=== PATIENT | male | born 1945 | race Caucasian/White ===

== ENCOUNTER → 2020-01-04 11:12 | Outpatient (CLI) | payer OTHER, SELFPAY ==
[2020-01-05 06:47] LABS: COVID19 Sendout Not Detected (Not Detect)
== END ==
PROVIDERS: PCP Family Medicine; Visit Provider Physician Assistant
DX: Z01.812 Encounter for preprocedural laboratory examination (principal)
CPT/HCPCS: 87635

== ENCOUNTER 2020-01-07 07:30 | Day surgery (SDC) | payer OTHER, SELFPAY ==
--- NOTE | 2020-01-07 | PATH_ITS ---
[facility] Accession Number: [id number] . 01 Material submitted: . PART A: cecum - CECUM PART B: anal skin - ANAL VERGE . 02 Diagnosis: A. Cecum, Biopsy: Tubular adenoma. . B. Anal Verge, Biopsy: Hyperplastic polyps. MRV 01/11/2020 0945 Local . 02 Electronically signed: . Anna Tanner MD, Pathologist NPI- [id number] . 01 Gross description: . Specimen A is received in formalin, labeled with patient identification and cecum biopsy. It consists of a yellow-suárez and irregular soft tissue piece measuring 0.4 x 0.3 x 0.2 cm. The entire specimen is submitted in one cassette. . Summary of sections: A1 - one piece. . Specimen B is received in formalin, labeled with patient identification and anal verge biopsy. It consists of multiple yellow-suárez irregular soft tissue pieces measuring 0.6 x 0.5 x 0.3 cm in aggregate. The entire specimen is submitted in one cassette. . Summary of sections: B1 - multiple pieces. ([id number]) /MRV 01/08/2020 1411 Local . 02 Pathologist provided ICD-10: D12.0 . 02 CPT . 916527, 608252 Performed at: 01 [facility] [address], [place], [place] [id number] MD Nishant Bhakta MD Phone: [phone] Performed at: 02 [facility] [address] [place], [place] [id number] MD Anna Tanner MD Phone: [phone]
[2020-01-07 08:57] VITALS: BP 133/76; PULSE 47; RESP 14; TEMP 36.3; O2SAT 99; BMI 26.9
--- NOTE | 2020-01-07 10:13 | PM.HP.1 ---
History of Present Illness History of Present Illness Date Patient Seen: 01/07/20 Time Patient Seen: 10:05 Chief complaint: [id number] Narrative: Patient is a gentleman whose father of colon cancer. He has had polyps removed on every scope he has had since he was 44. His been 6 years since his last scope. He is here for colonoscopy Patient History Medical History (Updated 01/07/20 @ 10:14 by Tommie Rudd MD) CAD (coronary artery disease) (Acute) Surgical History (Updated 01/07/20 @ 10:14 by Tommie Rudd MD) H/O heart artery stent (Acute) Family & Social History Social History: household members spouse Tobacco & Substance use: Smoking Status Former smoker alcohol intake current alcohol intake frequency 0-2 drinks per day Substance Use Type marijuana Meds Home Medications and Allergies Home Medications Medication Instructions Recorded Confirmed Type amlodipine [Norvasc] 5 mg PO BID #0 04/28/17 01/07/20 History metoprolol succinate [Toprol XL] 25 mg PO QDAY #0 04/28/17 01/07/20 History sodium,potassium,mag sulfates 17.5 177 ml PO DAILY #354 ml 01/05/20 Rx gram-3.13 gram-1.6 gram oral soln aspirin [Aspirin Childrens] 81 mg PO DAILY 01/07/20 01/07/20 History atorvastatin 40 mg PO DAILY 01/07/20 01/07/20 History desonide 1 applic TOPICAL DAILY PRN 01/07/20 01/07/20 History dexlansoprazole [Dexilant] 60 mg PO BID 01/07/20 01/07/20 History ferrous sulfate 325 mg PO BID 01/07/20 01/07/20 History glucosamine HCl 1,500 mg PO BID 01/07/20 01/07/20 History hydrocortisone [Proctozone-HC] 1 applic ID BID-QID PRN 01/07/20 01/07/20 History lisinopril 5 mg PO DAILY 01/07/20 01/07/20 History loratadine 10 mg PO DAILY 01/07/20 01/07/20 History multivitamin 1 tab PO DAILY 01/07/20 01/07/20 History nitroglycerin 0.4 mg SUBLINGUAL Q5-15M PRN 01/07/20 01/07/20 History olopatadine 1 drp OPHTHALMIC (EYE) DAILY 01/07/20 01/07/20 History Allergies Allergy/AdvReac Type Severity Reaction Status Date / Time No Known Allergies Allergy Uncoded 01/07/20 08:49 Review of Systems Review of Systems Narrative: No chest pain since his stents were placed ROS: Yes All systems reviewed with the patient and are negative except as otherwise documented Exam Vital Signs (past 8 hours): - 01/07/20 08:57 Temperature 97.4 F L Pulse Rate 47 L Respiratory Rate 14 Blood Pressure 133/76 Pulse Oximetry 99 Oxygen Delivery Method Room Air Narrative Exam Narrative: No apparent distress. Lungs are clear to auscultation no rales or rhonchi heart regular rate and rhythm without murmur gallop abdomen is protuberant soft. Nontender. No masses. Alert and oriented x3. Assessment & Plan Assessment & Plan narrative: Patient for a screening colonoscopy. I have discussed the procedure and the rationale with the patient including risks of bleeding, perforation which would necessitate a major operation, failure to find remove all lesions and the potential to tattoo. They appeared to understand and wished to proceed.
--- NOTE | 2020-01-07 10:15 | PM.PREOP ---
Pre-operative Note Interval Note History & Physical reviewed/Exam performed by Physician: Yes Changes to H&P: No
--- NOTE | 2020-01-07 11:06 | PM.OP.ENDO ---
Operative Date/Time/Diagnoses Date of procedure: 01/07/20 Time of procedure: 11:06 Pre-op diagnosis: History of polyps. Father with colon cancer. Last scope was done 6 years ago. Post-op diagnosis: same (Polyps. Sigmoid diverticulosis.) Procedure & Clinicians Study performed: Colonoscopy with cold biopsy Same procedure as scheduled: Yes Indications: Screening. Surgeon: Tommie Rudd Procedure Notes SCOAP/Timeout: Performed Procedure in detail: The patient was placed in the left lateral decubitus position and underwent IV sedation directed by the surgeon consisting of fentanyl and Versed. Digital exam was remarkable for mild enlargement of his prostate. The scope was inserted and advanced through the rectum into the sigmoid, descending, transverse, and ascending colon. Patient was noted to have diverticulosis of the sigmoid colon and some tortuosity as well.. The cecum was reached identified by the ileocecal valve and the appendiceal opening. To reach the cecum the patient had to be repositioned and pressure applied to his abdomen. There was a small polyp in the cecum which was biopsied and appeared to be completely removed. The scope was gradually brought out. Two other polyps were seen near the anal verge. These were biopsied and removed. The scope ultimately was retroflexed in the rectum. The appearance was otherwise normal. The scope was removed and the patient tolerated the procedure well. Prep was good Scope withdrawal time: 7-1/2 minutes Sedation minutes: 38 Findings: diverticulosis (Sigmoid) and polyp Specimen(s): other (Polyps) Complications: none Post-procedure Recommendations: Colonscopy in 5 years (If in good health) Follow up: as needed Disposition: PACU
[2020-01-07] MEDS: MIDAZOLAM 5 MG/5 ML VIAL IV (11:07)
[2020-01-07] MEDS: fentaNYL 250 MCG/5 ML INJ IV (11:08)
[2020-01-07 11:09] VITALS: BP 119/70; PULSE 52; RESP 13; TEMP 36.2; O2SAT 96
[2020-01-07 11:14] VITALS: BP 127/70; PULSE 60; RESP 17; O2SAT 97
[2020-01-07 11:18] VITALS: BP 128/75; PULSE 59; RESP 15; O2SAT 96
[2020-01-07 11:25] VITALS: BP 135/88; PULSE 56; RESP 13; TEMP 36.6; O2SAT 96
[2020-01-07 11:56] VITALS: BP 133/76; PULSE 53; RESP 16; TEMP 36.3; O2SAT 95
== END 2020-01-07 12:11 | disposition home or self-care (01) ==
PROVIDERS: PCP Family Medicine; Referring Provider Specialist; Visit Provider Specialist
PROC: 0DJD8ZZ Inspection of Lower Intestinal Tract, Via Natural or Artificial Opening Endoscopic (ICD-10-PCS; CPT 45378; principal; 2020-01-07 09:45)
DX: Z12.11 Encounter for screening for malignant neoplasm of colon (principal); Z86.010 Personal history of colon polyps; Z80.0 Family history of malignant neoplasm of digestive organs; K57.30 Diverticulosis of large intestine without perforation or abscess without bleeding; D12.0 Benign neoplasm of cecum
CPT/HCPCS: 45380; 99152; 99153; J2250; J3010

== ENCOUNTER → 2020-06-01 11:00 | Outpatient (CLI) | payer OTHER, SELFPAY ==
[2020-06-01 12:38] LABS: BUN Creatinine Ratio 12.5 (6-22); Blood Urea Nitrogen 12 mg/dL (9-20); Estimated Glomerular Filt Rate > 60.0 mL/min (>60)
--- NOTE | 2020-06-01 12:56 | DI.CT.S_ITS ---
PROCEDURE: CT ANGIO CHEST PE PROTOCOL INDICATIONS: Chest pain, unspecified TECHNIQUE: After the administration of intravenous contrast, 2 mm thick sections acquired from the pulmonary apices to the posterior costophrenic angles. 3-dimensional maximum intensity projection (MIP) coronal and sagittal reformats were then acquired through the thorax. For radiation dose reduction, the following was used: automated exposure control, adjustment of mA and/or kV according to patient size. COMPARISON: None. FINDINGS: Image quality: Excellent. Pulmonary arteries: Pulmonary arteries are normal in size, and demonstrate no intraluminal filling defects to suggest central pulmonary embolism. Lungs and pleura: Lungs are clear. No pleural effusions or pneumothorax. Central and peripheral airways are patent. Mediastinum: Heart size is normal, without pericardial effusion. No mediastinal or hilar adenopathy. Thoracic aorta is normal in caliber and enhancement. Esophagus is normal in caliber, without hiatal hernia. Bones and chest wall: No suspicious bony lesions. Ribs and thoracic spine appear intact throughout. Thyroid gland appears normal where well seen . No axillary or supraclavicular adenopathy. Abdomen: Visualized upper abdominal solid organs appear normal in the early arterial phase of enhancement. IMPRESSION: No pulmonary embolus found. Source of current chest pain is not found. Dictated by: Miguel Ángel Hdz M.D. on 06/01/2020 at 13:22 Approved by: Miguel Ángel Hdz M.D. on 06/01/2020 at 13:23
== END ==
PROVIDERS: PCP Family Medicine; Referring Provider Family Medicine; Visit Provider Family Medicine
DX: R07.9 Chest pain, unspecified (principal)
CPT/HCPCS: 36415; 71275; 82565; 84520; Q9967

== ENCOUNTER → 2020-10-06 10:05 | Outpatient (CLI) | payer OTHER, SELFPAY ==
[2020-10-06 10:49] LABS: COVID19 -Nasal RAPID Negative (Negative)
== END ==
PROVIDERS: PCP Family Medicine; Visit Provider Specialist
DX: Z20.822 Contact with and (suspected) exposure to COVID-19 (principal)
CPT/HCPCS: 87635; C9803

== ENCOUNTER 2020-10-07 09:46 | Day surgery (SDC) | payer OTHER, SELFPAY ==
[2020-10-07] VITALS (8 sets, daily range): BP systolic 99–113; BP diastolic 55–72; PULSE 43–46; RESP 12–15; TEMP 36.2–36.6; O2SAT 93–97; BMI 27.1
--- NOTE | 2020-10-07 | PATH_ITS ---
[facility] Accession Number: [id number] . 01 Material submitted: . PART A: gastrointestinal site - GASTRIC POLYPS PART B: body - PROXIMAL STOMACH NEAR GE JUNCTION . 01 Diagnosis: A. Gastric Polyps, Biopsy: Gastric hyperplastic polyps with surface erosions. Negative for Helicobacter organisms by immunohistochemistry. Negative for intestinal metaplasia. Negative for dysplasia or malignancy. . B. Proximal Stomach, Near Gastroesophageal Junction, Biopsy: Gastric-type mucosa with foveolar hyperplasia, consistent with gastric hyperplastic polyp. No evidence of Helicobacter on H/E stain. Negative for intestinal metaplasia. Negative for dysplasia or malignancy. MRV 10/13/2020 1250 Local . 01 Electronically signed: . Guanakito Gleason MD, PhD, Pathologist NPI- [id number] . 01 Gross description: . A. The specimen is received in formalin, labeled gastric polyp and consists of multiple suárez-pink fragments of soft tissue measuring 1.0 x 0.8 x 0.2 cm in aggregate. The specimen is entirely submitted in cassette A1. B. The specimen is received in formalin, labeled proximal stomach near GE junction and consists of two suárez-pink fragments of soft tissue measuring 0.6 x 0.5 x 0.2 cm in aggregate. The specimen is entirely submitted in cassette B1. (EA:[id number]) /MRV 10/11/2020 1704 Local . 01 Microscopic: . A. An immunohistochemical stain was performed to evaluate for Helicobacter organisms and is negative. The control stain showed appropriate reactivity. . * This test was developed and its performance characteristics determined by [facility]. It has not been cleared or approved by the U.S. Food and Drug Administration. The FDA has determined that such clearance or approval is not necessary. This test is used for clinical purposes. It should not be regarded as investigational or for research. . 01 Pathologist provided ICD-10: K31.7, K29.70 . 01 CPT . 197752, 778269, Q92221 Performed at: 01 [facility] [address], [place], [place] [id number] MD Nishant Bhakta MD Phone: [phone]
[2020-10-07] MEDS: LACTATED RINGERS 1,000 ML 200 ML IV (10:00)
--- NOTE | 2020-10-07 11:20 | PM.PREOP ---
Pre-operative Note COVID-19 COVID-19 status: Negative Result date/Date tested (Pos, Neg/Pending): 10/06/20 Interval Note History & Physical reviewed/Exam performed by Physician: Yes Changes to H&P: No ASA Class (for procedural sedation): III
[2020-10-07] MEDS: fentaNYL 250 MCG/5 ML INJ IV (11:27)
[2020-10-07] MEDS: MIDAZOLAM 5 MG/5 ML VIAL IV (11:27)
[2020-10-07] MEDS: LIDOCAINE 4% SOLN 50 ML 20 ML TOP (11:35)
--- NOTE | 2020-10-07 11:38 | PM.OP.ENDO ---
Operative Date/Time/Diagnoses Date of procedure: 10/07/20 Time of procedure: 11:39 Pre-op diagnosis: Epigastric pain Post-op diagnosis: same (Multiple hemorrhagic polypoid lesions.) Procedure & Clinicians Study performed: EGD with cold biopsy Same procedure as scheduled: Yes Indications: Try to determine cause of epigastric pain that does not appear to be cardiac in nature Surgeon: Tommie Rudd Procedure Notes SCOAP/Timeout: Perform Procedure in detail: The patient had topical anesthetic applied to oropharynx. She was placed in left lateral decubitus position and underwent IV sedation directed by the surgeon consisting of fentanyl and Versed. A bite block was inserted and the scope was advanced through it into the esophagus. The esophagus was unremarkable. GE junction was noted at 41 cm from the incisors.. The stomach insufflated well. There were multiple polypoid hemorrhagic lesions seen in the body and the proximal stomach. The antrum was spared these polyps but there was also inflamed spots in the antrum. The pyloric channel was patent. The duodenum was unremarkable to the 4th part. The scope was brought back into the stomach and retroflexed. The proximal stomach more hemorrhagic polyps were identified. I biopsied numerous polyps. One was a little larger and a little more irregular than the others and was placed in a separate container. This was in the proximal stomach and a separate picture was taken of it.. The scope was straightened and brought out through the esophagus again. No other lesions were seen. The scope was removed and the patient tolerated the procedure well. Scope withdrawal time: Not applicable Sedation minutes: 12 Findings: other findings (Hemorrhagic gastric polyps) Specimen(s): other (Polyp biopsies) Complications: none Post-procedure Recommendations: Other recommendation (Await pathology results.) Follow up: as needed Disposition: PACU
== END 2020-10-07 12:40 | disposition home or self-care (01) ==
PROVIDERS: PCP Family Medicine; Referring Provider Specialist; Visit Provider Specialist
PROC: 0DJ08ZZ Inspection of Upper Intestinal Tract, Via Natural or Artificial Opening Endoscopic (ICD-10-PCS; CPT 43235; principal; 2020-10-07 10:45)
DX: K92.2 Gastrointestinal hemorrhage, unspecified (principal); K21.9 Gastro-esophageal reflux disease without esophagitis; I25.10 Atherosclerotic heart disease of native coronary artery without angina pectoris; K31.7 Polyp of stomach and duodenum
CPT/HCPCS: 43239; 99152; J2250; J3010

== ENCOUNTER → 2020-11-15 09:47 | Outpatient (CLI) | payer OTHER, SELFPAY ==
--- NOTE | 2020-11-15 09:48 | DI.RAD.S_ITS ---
PROCEDURE: FL BARIUM SWALLOW INDICATIONS: new heartburn despite meds .r/o motility disorder COMPARISON: None. FINDINGS: Function: There is decreased esophageal peristalsis. No elicited gastroesophageal reflux. There is normal transit of a calibrated barium tablet through the esophagus into the stomach. Morphology: Air-contrast images demonstrate normal mucosal morphology. Single contrast views show no esophageal strictures, extrinsic mass effects, or diverticula. Limited images of the stomach demonstrate normal appearance. IMPRESSION: Esophageal dysmotility and delayed esophageal clearance. Dictated by: Alfonso Newsome M.D. on 11/15/2020 at 10:43 Approved by: Alfonso Newsome M.D. on 11/15/2020 at 10:46
== END ==
PROVIDERS: PCP Family Medicine; Referring Provider Specialist; Visit Provider Specialist
DX: K21.9 Gastro-esophageal reflux disease without esophagitis (principal); K22.4 Dyskinesia of esophagus
CPT/HCPCS: 74220

== ENCOUNTER → 2021-07-19 19:30 | Outpatient (CLI) | payer OTHER, SELFPAY ==
--- NOTE | 2021-07-19 | DI.MRI.S_ITS ---
PROCEDURE: MR SHOULDER LT WO CON INDICATIONS: Unspecified injury of left shoulder and upper arm TECHNIQUE: Noncontrast oblique coronal T2 fast spin echo with fat saturation, oblique sagittal T1 spin echo and T2 fast spin echo with fat saturation, axial T1 spin echo and T2 fast spin echo with fat saturation through the shoulder. COMPARISON: [facility] [place], [place], XR SHOULDER 2+ VIEWS LEFT, 07/10/2021, 14:51. FINDINGS: Image quality: Excellent. Rotator cuff: There is mild T2 signal elevation throughout the supraspinatus and infraspinatus tendons at the humeral insertion sites extending to the musculotendinous junction, indicating tendinopathy. Superimposed low-grade partial-thickness bursal surface tearing of the mid/anterior supraspinatus tendon at the humeral insertion site. Low-grade partial-thickness intrasubstance tearing of the anterior infraspinatus tendon at the musculotendinous junction. Full-thickness tearing of the mid/inferior subscapularis tendon at the humeral insertion site with medial retraction of the subscapularis. A few intact fibers of superior subscapularis are present which demonstrate moderate grade tearing. Bones and bursae: No bone marrow contusions or fractures. Moderate acromioclavicular joint degeneration. The acromion demonstrates conventional anatomy, without an os acromiale. No pathologic subacromial-subdeltoid or subcoracoid bursal fluid is present. Capsule and soft tissues: Labrum demonstrates diffuse tearing posteriorly and inferiorly. The long head of the biceps tendon is subluxed medially, and demonstrates moderate grade partial-thickness tearing proximally. Moderate glenohumeral joint effusion. The rotator interval appears normal, without fibrosis. The coracohumeral ligament is normal in thickness. IMPRESSION: 1. Full-thickness tearing of most of the subscapularis tendon. 2. Supraspinatus and infraspinatus tendinopathy. Superimposed low-grade partial-thickness tearing of the supraspinatus. 3. Acromioclavicular joint osteoarthritis. 4. Glenoid labral tearing. 5. Biceps tendon subluxation and partial-thickness tearing. Dictated by: Wendy Valiente M.D. on 07/20/2021 at 8:40 Approved by: Wendy Valiente M.D. on 07/20/2021 at 8:45
== END ==
PROVIDERS: PCP Family Medicine; Referring Provider Orthopaedic Surgery Foot and Ankle Surgery; Visit Provider Orthopaedic Surgery Foot and Ankle Surgery
DX: S46.012A Strain of muscle(s) and tendon(s) of the rotator cuff of left shoulder, initial encounter (principal); S43.492A Other sprain of left shoulder joint, initial encounter; S46.112A Strain of muscle, fascia and tendon of long head of biceps, left arm, initial encounter; M19.012 Primary osteoarthritis, left shoulder; X58.XXXA Exposure to other specified factors, initial encounter
CPT/HCPCS: 73221

== ENCOUNTER → 2022-04-11 11:13 | Outpatient (CLI) | payer OTHER, SELFPAY ==
--- NOTE | 2022-04-11 | DI.CT.S_ITS ---
PROCEDURE: CT HEAD/BRAIN WO CON INDICATIONS: Dizziness and giddiness TECHNIQUE: Noncontrast 4.5 mm thick angled axial sections acquired from the foramen magnum to the vertex, with coronal and sagittal reformats. For radiation dose reduction, the following was used: automated exposure control, adjustment of mA and/or kV according to patient size. COMPARISON: [facility], , CAROTID DOPPLER BI, 04/11/2022, 11:36. FINDINGS: Image quality: Excellent. CSF spaces: Basal cisterns are patent. No extra-axial fluid collections. The ventricles are symmetric in size and shape. Brain: No intracranial bleeds or masses. There is cerebral volume loss for age, with resultant ventricular and sulcal prominence. There are periventricular and deep white matter chronic small vessel ischemic changes. There is intracranial internal carotid artery atherosclerosis. Skull and face: Calvarium and visualized facial bones appear intact, without suspicious lesions. Sinuses: Visualized sinuses and mastoids are clear. IMPRESSION: Unremarkable noncontrast head CT for age, without a cause of the patient's presenting symptoms identified. If it would be helpful for clinical management decision making, please consider a dedicated, scheduled brain MRI (without and with contrast) for further evaluation (assuming that there is no contraindication). Dictated by: Roberto Martinez M.D. on 04/11/2022 at 12:05 Approved by: Roberto Martinez M.D. on 04/11/2022 at 12:06
--- NOTE | 2022-04-11 | DI.US.S_ITS ---
PROCEDURE: US CAROTID DOPPLER BI INDICATIONS: DIZZINESS AND GIDDINESS TECHNIQUE: Color and pulse Doppler interrogation was performed of both carotid systems, with image documentation and velocity measurements. COMPARISON: [facility], CT, CT HEAD/BRAIN WO CON, 04/11/2022, 12:09. FINDINGS: Stenosis calculations are based on SRU (Society of Radiologists in Ultrasound) criteria. The flow velocities and the arterial waveforms are normal within both carotid arterial systems. Atherosclerotic plaque is seen on both sides, left worse than right. The estimated degree of internal carotid artery stenosis is less than 50%. Antegrade flow is confirmed within both vertebral arteries. IMPRESSION: No hemodynamically significant stenosis is seen. Dictated by: Roberto Martinez M.D. on 04/11/2022 at 11:56 Approved by: Roberto Martinez M.D. on 04/11/2022 at 11:56
== END ==
PROVIDERS: PCP Family Medicine; Referring Provider Family Medicine; Visit Provider Family Medicine
DX: R42 Dizziness and giddiness (principal)
CPT/HCPCS: 70450; 93880

== ENCOUNTER → 2022-08-16 11:50 | Outpatient (CLI) | payer OTHER, SELFPAY ==
--- NOTE | 2022-08-21 08:04 | PM.PFT.1 ---
Pulmonary Function Test Referral & Results Date Patient Seen: 08/16/22 Requesting provider: Gary Santos Results: The spirometry demonstrates an FVC of 4.66 L which is 114% of predicted. The FEV1 was measured at 3.29 L which is 112% of predicted. The FEV1/FVC ratio was 70 which is 97% of predicted. Following the administration of bronchodilator there was no appreciable change to above normal numbers. Lung volumes show an SVC of 4.75 L which is 107% of predicted. The diffusing capacity was measured at 22.64 which is 70% of predicted. The maximum voluntary ventilation was normal Interpretation: This study demonstrates normal spirometry There is a minimal reduction diffusing capacity suggesting the presence of disease at the capillary alveolar level Clinical correlation suggested
== END ==
PROVIDERS: PCP Family Medicine; Referring Provider Family Medicine; Visit Provider Family Medicine
DX: R94.2 Abnormal results of pulmonary function studies (principal); J98.8 Other specified respiratory disorders
CPT/HCPCS: 94060; 94726; 94729

== ENCOUNTER 2022-10-24 13:12 | Day surgery (SDC) | payer OTHER, SELFPAY ==
--- NOTE | 2022-10-24 | PATH_ITS ---
[facility] Accession Number: [id number] No. of containers..01 Tissue . 01 Material submitted: . gastrointestinal site - GASTRIC POLYPS . 01 Diagnosis: Gastric Polyp: Gastric hyperplastic polyp. Negative for Helicobacter organisms by immunohistochemistry. Negative for intestinal metaplasia. Negative for dysplasia or malignancy. MRV 10/30/2022 1514 Local . 01 Electronically signed: . Guanakito Gleason MD, PhD, Pathologist NPI- [id number] . 01 Gross description: . GASTRIC POLYPS: Received in formalin is 1 fragment(s) of suárez, soft tissue measuring 0.5 x 0.2 x 0.1 cm submitted entirely in 1 cassette(s) /CPE 10/25/2022 0718 Local . 01 Microscopic: . A. An immunohistochemical stain was performed to evaluate for Helicobacter organisms and is negative. The control stain showed appropriate reactivity. . * This test was developed and its performance characteristics determined by [facility]. It has not been cleared or approved by the U.S. Food and Drug Administration. The FDA has determined that such clearance or approval is not necessary. This test is used for clinical purposes. It should not be regarded as investigational or for research. . 01 Pathologist provided ICD-10: K31.7 . 01 CPT . 958497, L65651 Specimen Comment: A courtesy copy of this report has been sent to [phone] Performed at: 01 [facility] [address] [place] [address], [place], [place] [id number] MD Nishant Bhakta MD Phone: [phone]
[2022-10-24] MEDS: LACTATED RINGERS 1,000 ML 100 ML IV (13:56)
[2022-10-24 14:14] VITALS: BP 157/78; PULSE 52; RESP 16; TEMP 35.8; O2SAT 99; BMI 26.8
--- NOTE | 2022-10-24 14:43 | PM.OP.EGD ---
Operative Date/Time/Diagnoses Date of procedure: 10/24/22 Pre-op diagnosis: See indication and findings Procedure & Clinicians Study performed: EGD Indications: Worsening GE reflux despite high-dose medications Surgeon: Jamil Main Procedure Notes Procedure in detail: After informed consent was obtained the patient was placed in left lateral decubitus position. The video upper scope was placed into the oropharynx and with the patient's help swallowed into the esophagus. The esophagus stomach and duodenum were carefully examined. On withdrawal, retroflexed view the GE junction was performed. The scope was removed. The patient tolerated procedure well. Blood loss none Complications none Sedation mac Findings 1. Normal esophagus though with a somewhat open GE junction. No evidence for esophagitis 2. Few scattered small gastric polyps in the body and fundus. Biopsies taken 3. Normal duodenal bulb and sweep We will have to work on medication adjustments for Mr. Scanlon Will discuss further with when we get the results of his pathology back.
--- NOTE | 2022-10-24 14:44 | PM.HP.1 ---
History of Present Illness History of Present Illness Date Patient Seen: 10/24/22 Chief complaint: EGD w/poss bx Narrative: Worsening GE reflux despite high-dose medication [facility] Medical History CAD (coronary artery disease) Cardiac angina Enlarged prostate GERD (gastroesophageal reflux disease) Hypertension Wears glasses Surgical History H/O heart artery stent Social History household members: spouse Smoking Status: Never smoker alcohol intake: current Meds Home Medications and Allergies Home Medications Medication Instructions Recorded Confirmed Type amlodipine 5 mg tablet (Norvasc) 5 mg PO BID ##0 04/28/17 10/24/22 History aspirin 81 mg chewable tablet 81 mg PO DAILY 01/07/20 10/24/22 History (Aspirin Childrens) atorvastatin 40 mg tablet 40 mg PO DAILY 01/07/20 10/24/22 History desonide 0.05 % topical ointment 1 applic topical DAILY PRN Itching 01/07/20 10/24/22 History dexlansoprazole 60 mg 60 mg PO BID 01/07/20 10/24/22 History capsule,biphase delayed release (Dexilant) ferrous sulfate 325 mg (65 mg 325 mg PO BID 01/07/20 10/24/22 History iron) tablet glucosamine HCl 1,500 mg tablet 1,500 mg PO BID 01/07/20 10/27/20 History lisinopril 5 mg tablet 5 mg PO DAILY 01/07/20 10/24/22 History loratadine 10 mg tablet 10 mg PO DAILY 01/07/20 10/24/22 History multivitamin 1 tab PO DAILY 01/07/20 10/24/22 History nitroglycerin 0.4 mg sublingual 0.4 mg sublingual Q5-15M PRN Chest 01/07/20 10/24/22 History tablet Pain olopatadine 0.2 % eye drops 1 drp ophthalmic (eye) DAILY 01/07/20 10/24/22 History Allergies Allergy/AdvReac Type Severity Reaction Status Date / Time No Known Drug Allergies Allergy Verified 10/24/22 14:00 Exam Vital Signs (past 8 hours): - 10/24/22 14:14 Temperature 96.5 F L Pulse Rate 52 L Respiratory Rate 16 Blood Pressure 157/78 H Pulse Oximetry 99 Oxygen Delivery Method Room Air Oxygen Delivery Method Room Air Narrative Exam Narrative: Oropharynx free of lesions Chest clear to auscultation percussion Cardiac exam reveals no S3 or murmur Assessment & Plan Assessment & Plan narrative: With the worsening GE reflux rule out an healed esophagitis. Risks, benefits, alternatives have been explained.
[2022-10-24 15:04] VITALS: BP 112/61; PULSE 49; RESP 16; TEMP 36.4; O2SAT 97
[2022-10-24 15:06] VITALS: BP 113/62; PULSE 52; RESP 12; O2SAT 97
--- NOTE | 2022-10-24 15:06 | PM.HP.1 ---
History of Present Illness History of Present Illness Date Patient Seen: 10/24/22 Chief complaint: EGD w/poss bx Narrative: Worsening GE reflux despite high-dose medication [facility] Medical History CAD (coronary artery disease) Cardiac angina Enlarged prostate GERD (gastroesophageal reflux disease) Hypertension Wears glasses Surgical History H/O heart artery stent Social History household members: spouse Smoking Status: Never smoker alcohol intake: current Meds Home Medications and Allergies Home Medications Medication Instructions Recorded Confirmed Type amlodipine 5 mg tablet (Norvasc) 5 mg PO BID ##0 04/28/17 10/24/22 History aspirin 81 mg chewable tablet 81 mg PO DAILY 01/07/20 10/24/22 History (Aspirin Childrens) atorvastatin 40 mg tablet 40 mg PO DAILY 01/07/20 10/24/22 History desonide 0.05 % topical ointment 1 applic topical DAILY PRN Itching 01/07/20 10/24/22 History dexlansoprazole 60 mg 60 mg PO BID 01/07/20 10/24/22 History capsule,biphase delayed release (Dexilant) ferrous sulfate 325 mg (65 mg 325 mg PO BID 01/07/20 10/24/22 History iron) tablet glucosamine HCl 1,500 mg tablet 1,500 mg PO BID 01/07/20 10/27/20 History lisinopril 5 mg tablet 5 mg PO DAILY 01/07/20 10/24/22 History loratadine 10 mg tablet 10 mg PO DAILY 01/07/20 10/24/22 History multivitamin 1 tab PO DAILY 01/07/20 10/24/22 History nitroglycerin 0.4 mg sublingual 0.4 mg sublingual Q5-15M PRN Chest 01/07/20 10/24/22 History tablet Pain olopatadine 0.2 % eye drops 1 drp ophthalmic (eye) DAILY 01/07/20 10/24/22 History Allergies Allergy/AdvReac Type Severity Reaction Status Date / Time No Known Drug Allergies Allergy Verified 10/24/22 14:00 Exam Vital Signs (past 8 hours): - 10/24/22 14:14 Temperature 96.5 F L Pulse Rate 52 L Respiratory Rate 16 Blood Pressure 157/78 H Pulse Oximetry 99 Oxygen Delivery Method Room Air Oxygen Delivery Method Room Air Narrative Exam Narrative: Oropharynx free of lesions Chest clear to auscultation percussion Cardiac exam reveals no S3 or murmur Assessment & Plan Assessment & Plan narrative: Worsening GE reflux rule out esophagitis. Risks, benefits, alternatives have been explained.
[2022-10-24 15:07] VITALS: BP 113/62; PULSE 49; RESP 20; O2SAT 97
--- NOTE | 2022-10-24 15:09 | PM.OP.EGD ---
Operative Date/Time/Diagnoses Date of procedure: 10/24/22 Pre-op diagnosis: See indication and findings
[2022-10-24 15:18] VITALS: BP 132/66; PULSE 59; RESP 11; O2SAT 98
== END 2022-10-24 16:23 | disposition home or self-care (01) ==
PROVIDERS: PCP Family Medicine; Referring Provider Internal Medicine Gastroenterology; Visit Provider Internal Medicine Gastroenterology
PROC: 0DJ08ZZ Inspection of Upper Intestinal Tract, Via Natural or Artificial Opening Endoscopic (ICD-10-PCS; CPT 43235; principal; 2022-10-24 14:30)
DX: K21.9 Gastro-esophageal reflux disease without esophagitis (principal); K31.7 Polyp of stomach and duodenum
CPT/HCPCS: 43239; J2704

== ENCOUNTER → 2022-12-20 12:19 | Outpatient (CLI) | payer OTHER, SELFPAY ==
--- NOTE | 2022-12-20 | DI.MRI.S_ITS ---
PROCEDURE: MR LUMBAR SPINE WO CON INDICATIONS: SPINAL STENOSIS TECHNIQUE: Noncontrast sagittal T1 spin echo and T2 fast echo, sagittal STIR, and T2 fast spin echo through the lumbar spine. In cases with scoliosis, additional coronal T2 fast spin echo may be performed. COMPARISON: [facility], CT, ABDOMEN W&WO CONTRAST, 01/26/2016, 9:24. FINDINGS: Image quality: This examination is limited by involuntary motion artifact. Alignment and Curvature: Minimal retrolisthesis can be seen at T12-L1, L1-L2, L2-L3, and L3-L4. There is grade 1 L4-L5 anterolisthesis seen. Associated bilateral L4 pars defects are seen. Bone Marrow: Marrow is of normal overall signal. Scattered foci are seen, which are hyperintense on T1-weighted and T2-weighted imaging, which are most consistent with benign vertebral body hemangiomas. No acute vertebral body compression fractures. Spinal Cord: Conus medullaris terminates at the L1 level. Visualized cord demonstrates normal signal and size. Paraspinous Soft Tissues: No paravertebral masses. T12-L1: The disc height is well-preserved. Loss of disc signal is seen at this level. Mild to moderate disc bulge is seen, which is eccentric to the right, with a right foraminal disc protrusion. There is moderate right-sided and no significant left-sided neural foraminal narrowing. No significant central canal narrowing is seen. L1-L2: The disc height is well-preserved. Loss of disc signal is seen at this level. Mild generalized disc bulge is seen. There is a superimposed central disc protrusion. Moderate bilateral neural foraminal narrowing is seen. Mild central canal narrowing is seen. L2-L3: Mild loss of disc height is seen. Loss of disc signal is seen. Moderate generalized disc bulge is seen. There is a superimposed central disc protrusion. Mild facet joint hypertrophy is seen. There is at least moderate bilateral neural foraminal narrowing seen. At least moderate central canal narrowing is seen. L3-L4: The disc height is well-preserved. Loss of disc signal is seen at this level. Moderate disc bulge is seen, which is eccentric to the right. Moderate facet joint hypertrophy is seen. Associated hypertrophy of the ligamentum flavum can be seen. There is moderate to severe bilateral neural foraminal narrowing seen, with an associated a degree of compression seen upon the exiting nerve roots. Moderate central canal narrowing is seen. L4-L5: Moderate to severe loss of disc height and disc signal can be seen. Moderate disc bulge is seen, which is eccentric to the right. There is a central disc protrusion/uncovering seen. Moderate facet joint hypertrophy is seen. There is at least moderate bilateral neural foraminal narrowing seen. There is a degree of compression seen upon the exiting nerve roots. L5-S1: The disc height and disk signal are relatively well-preserved. Mild generalized disc bulge is seen. Mild facet joint hypertrophy is seen. There is mild left-sided and no significant right-sided neural foraminal narrowing. Minimal central canal narrowing is seen. IMPRESSION: Multiple levels of lumbar spine degenerative change are seen, which are overall worst at the L4-L5 level. Grade 1 L4-5 anterolisthesis, with associated bilateral L4 pars defects. Dictated by: Roberto Martinez M.D. on 12/20/2022 at 15:57 Approved by: Roberto Martinez M.D. on 12/20/2022 at 16:01
== END ==
PROVIDERS: PCP Family Medicine; Referring Provider Family Medicine; Visit Provider Family Medicine
DX: M48.07 Spinal stenosis, lumbosacral region (principal); M47.816 Spondylosis without myelopathy or radiculopathy, lumbar region; M47.817 Spondylosis without myelopathy or radiculopathy, lumbosacral region; M43.16 Spondylolisthesis, lumbar region
CPT/HCPCS: 72148

== ENCOUNTER → 2023-04-11 07:54 | Outpatient (CLI) | payer OTHER, SELFPAY ==
--- NOTE | 2023-04-11 | DI.US.S_ITS ---
PROCEDURE: US PERIPH VENOUS LOW EXTREM RT INDICATIONS: Radiculopathy, site unspecified TECHNIQUE: Real-time imaging, as well as color and pulse Doppler interrogation, were performed of the lower extremity deep veins from the inguinal ligament to the popliteal fossa, with documentation of the visualized calf veins. COMPARISON: None. FINDINGS: The common femoral, femoral, popliteal, and the visualized calf veins are normally compressible, and free of intraluminal thrombus. Color and pulse Doppler demonstrate normal phasic intraluminal flow. There is normal augmentation response to distal compression maneuver. IMPRESSION: No findings of lower extremity deep venous thrombosis. Dictated by: Jessica Luke M.D. on 04/11/2023 at 16:22 Approved by: Jessica Luke M.D. on 04/11/2023 at 16:24
--- NOTE | 2023-04-11 | DI.US.S_ITS ---
PROCEDURE: US ARTERIAL DUPLEX LE RT INDICATIONS: RADICULOPATHY TECHNIQUE: Color and pulse Doppler interrogation was performed of the right lower extremity arterial system, with image documentation. COMPARISON: None. FINDINGS: Common femoral artery: 168 cm/sec, with triphasic flow. Deep femoral artery: 56 cm/sec, with triphasic flow. Proximal superficial femoral artery: 141 cm/sec, with triphasic flow. Mid superficial femoral artery: 136 cm/sec, with triphasic flow. Distal superficial femoral artery: 98 cm/sec, with triphasic flow. Popliteal artery: 82 cm/sec, with triphasic flow. Posterior tibial artery: 67 cm/sec, with triphasic flow. Anterior tibial artery/dorsalis pedis: 70 cm/sec, with triphasic flow. Gao-scale imaging description: Trace plaque is identified peer IMPRESSION: Trace plaque with no significant stenosis in the right lower extremity by imaging or velocity/waveform criteria. Dictated by: Marquise Orona M.D. on 04/11/2023 at 16:36 Approved by: Marquise Orona M.D. on 04/11/2023 at 16:38
== END ==
PROVIDERS: PCP Family Medicine; Referring Provider Family Medicine; Visit Provider Family Medicine
DX: M54.10 Radiculopathy, site unspecified (principal)
CPT/HCPCS: 93926; 93971

== ENCOUNTER → 2024-05-06 10:44 | Outpatient (CLI) | payer OTHER, SELFPAY ==
--- NOTE | 2024-05-06 10:45 | DI.US.S_ITS ---
PROCEDURE: US ABDOMEN LIMITED INDICATIONS: EPIGASTRIC PAIN TECHNIQUE: Real-time focused scanning was performed of the abdomen, with image documentation. COMPARISON: [facility], CT, ABDOMEN W&WO CONTRAST, 01/26/2016, 9:24. FINDINGS: A prominent right lobe of the liver can be seen. The liver overall demonstrates normal echogenicity. No focally suspicious liver lesions are seen. No findings of gallstones or sludge are seen. The gallbladder wall is not thickened, measuring 3 mm or less. No specific pericholecystic fluid is seen. The sonographic Hassan sign is negative. There is no biliary dilatation, the common bile duct measures 5 mm. No significant pancreatic abnormality is seen on these images. The visualized right kidney is unremarkable, without hydronephrosis. IMPRESSION: The gallbladder demonstrates a normal sonographic appearance. No biliary dilatation is seen. Additional findings: Prominent right lobe of the liver Dictated by: Roberto Martinez M.D. on 05/06/2024 at 11:41 Approved by: Roberto Martinez M.D. on 05/06/2024 at 11:42
== END ==
PROVIDERS: PCP Family Medicine; Referring Provider Family Medicine; Visit Provider Family Medicine
DX: R10.13 Epigastric pain (principal)
CPT/HCPCS: 76705

== ENCOUNTER 2024-08-12 11:17 | Day surgery (SDC) | payer MEDICARE, SELFPAY ==
--- NOTE | 2024-08-12 | PATH_ITS ---
[facility] Accession Number: [id number] No. of containers..01 Tissue . 01 Material submitted: . gastrointestinal site - GASTRIC POLYP . 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 Ki67 proliferative index: less than 1 %. No Helicobacter organisms identified. STO 08/18/20241208 Local . 01 Electronically signed: . Nishant Bhakta MD, Pathologist NPI- [id number] . 01 Gross description: . Received in formalin with two patient identifiers and 1. Gastric polyp, is a single suárez soft tissue fragment 0.4 cm in greatest dimension. Submitted in cassette A1. ([id number]) /LISBET 08/18/20241208 Local . 01 Microscopic: . GASTRIC POLYP: Sections show gastric mucosa with a focal proliferation of neoplastic cells arranged in small nests within the lamina propria. The cells have round to ovoid nuclei and moderate amounts of pale eosinophilic cytoplasm. The neoplastic cells are uniformly positive for chely and for synaptophysin by immunostain*, supporting the diagnosis of neuroendocrine tumor. Immunostain results show a Ki67 index of < 1%, indicating very low proliferative activity. All controls stain as expected. Mitotic figures are not identified. The neoplasm measures 1 mm on the glass slide. The lesion closely abuts the biopsy edge. . An immunohistochemical stain* was performed to evaluate for Helicobacter organisms and is negative. The control stains appropriately. . * This test was developed and the performance characteristics were validated by [employer]. It has not been cleared or approved by the Food and Drug Administration. . Note: neuroendocrine tumor classification is based on the current WHO classification system, as described in Classification of Tumours, Digestive System Tumours, 5th edition, 2019. . 01 Pathologist provided ICD-10: D3A.092 . 01 CPT . 934432, G96943, R93736 Specimen Comment: A courtesy copy of this report has been sent to [phone] Performed at: [address] [id number] MD Nishant Bhakta MD Phone: [phone]
[2024-08-12 11:55] VITALS: BP 134/82; PULSE 57; RESP 16; TEMP 36.4; O2SAT 99
--- NOTE | 2024-08-12 11:57 | P.HP_ITS ---
History of Present Illness History of Present Illness Chief complaint: EGD & Colonoscopy w/poss bx's Narrative: Worsening GE reflux and family history of colon cancer in his father [facility] Medical History CAD (coronary artery disease) Cardiac angina Enlarged prostate GERD (gastroesophageal reflux disease) Hypertension Wears glasses Surgical History H/O heart artery stent Social History household members: spouse Smoking Status: Never smoker alcohol intake: current Meds Home Medications and Allergies Home Medications Medication Instructions Recorded Confirmed Type amlodipine 5 mg tablet (Norvasc) 5 mg PO BID ##0 04/28/17 08/12/24 History aspirin 81 mg chewable tablet 81 mg PO DAILY 01/07/20 08/12/24 History (Aspirin Childrens) atorvastatin 40 mg tablet 40 mg PO DAILY 01/07/20 08/12/24 History desonide 0.05 % topical ointment 1 applic topical DAILY PRN Itching 01/07/20 08/12/24 History ferrous sulfate 325 mg (65 mg 325 mg PO BID 01/07/20 08/12/24 History iron) tablet glucosamine HCl 1,500 mg tablet 1,500 mg PO BID 01/07/20 08/12/24 History lisinopril 5 mg tablet 10 mg PO DAILY 01/07/20 08/12/24 History loratadine 10 mg tablet (Claritin) 10 mg PO DAILY 01/07/20 08/12/24 History multivitamin 1 tab PO DAILY 01/07/20 08/12/24 History nitroglycerin 0.4 mg sublingual 0.4 mg sublingual Q5-15M PRN Chest 01/07/20 08/12/24 History tablet Pain olopatadine 0.2 % eye drops 1 drp ophthalmic (eye) DAILY 01/07/20 08/12/24 History lansoprazole 30 mg capsule,delayed 30 mg PO DAILY 08/12/24 08/12/24 History release Allergies Allergy/AdvReac Type Severity Reaction Status Date / Time No Known Drug Allergies Allergy Verified 08/12/24 11:37 Exam Narrative Exam Narrative: Oropharynx free of lesions Chest clear to auscultation percussion Cardiac exam reveals no S3 or murmur Assessment & Plan Assessment & Plan narrative: Worsening GE reflux need for upper endoscopy to detect whether esophagitis is present. Risks benefits and alternatives have been explained Family history of colon cancer in his father need for follow-up colonoscopy Risks benefits and alternatives have been explained Time-Based Coding :: [TOTAL MINUTES] spent with patient and on the chart (including review of chart, obtaining history, exam, reviewing outside data, placing orders, documenting exam and treatment plan, and counseling patient) on [DATE].
--- NOTE | 2024-08-12 11:58 | PM.OP.EC ---
Operative Date/Time/Diagnoses Date of procedure: 08/12/24 Pre-op diagnosis: See indication and findings Procedure & Clinicians Study performed: EGD and colonoscopy Indications: Worsening reflux and family history of colon cancer Surgeon: Jamil Main Procedure Notes Procedure in detail: After informed consent was obtained the patient was placed in the left lateral decubitus position. The video upper scope was placed into the oropharynx and with the patient's help swallowed into the esophagus. The esophagus stomach and duodenal were carefully examined. On withdrawal, retroflexed view the GE junction was performed. The scope was removed. The patient tolerated the procedure well. The patient was then turned and the colonoscope substituted. This was inserted into the rectum and easily passed the cecum. On slow withdrawal mucosa was carefully examined. The scope was removed. The patient tolerated procedure well. Blood loss none Complications none Sedation mac Findings EGD 1. Trivial GE junction erythema but no actual esophagitis. 2. Normal stomach with the exception of very small number what appeared to be fundic gland polyps. One 8 mm polyp however was very brightly erythematous. Biopsies were taken of this 3 times to rule out an unexpected type of polyp 3. Normal duodenal bulb and sweep Colonoscopy 1. Very tortuous colon throughout particularly in the sigmoid. 2. Normal colonoscopy to cecum though minimum amount of cecum was not completely visible. No polyps were detected. Patient may increase his anti-reflux medications since he had did not have any esophagitis. This probably should be his last colonoscopy unless easy extremely good health in 5 years.
[2024-08-12] MEDS: LACTATED RINGERS 1,000 ML 42 ML IV (12:01)
[2024-08-12 12:45] VITALS: BP 108/61; PULSE 49; RESP 17; TEMP 36.1; O2SAT 98
[2024-08-12 12:50] VITALS: BP 114/62; PULSE 50; RESP 20; TEMP 36.2; O2SAT 98
[2024-08-12 13:05] VITALS: BP 110/68; PULSE 49; RESP 20; TEMP 36.1; O2SAT 98
[2024-08-12 13:12] VITALS: BP 118/75; PULSE 51; RESP 18; TEMP 36.4; O2SAT 99
== END 2024-08-12 14:07 | disposition home or self-care (01) ==
PROVIDERS: PCP Family Medicine; Referring Provider Internal Medicine Gastroenterology; Visit Provider Internal Medicine Gastroenterology
PROC: 0DJ08ZZ Inspection of Upper Intestinal Tract, Via Natural or Artificial Opening Endoscopic (ICD-10-PCS; CPT 43239; principal; 2024-08-12 12:30)
PROC: 0DJD8ZZ Inspection of Lower Intestinal Tract, Via Natural or Artificial Opening Endoscopic (ICD-10-PCS; CPT 45378; 2024-08-12 12:30)
DX: Z12.11 Encounter for screening for malignant neoplasm of colon (principal); Z80.0 Family history of malignant neoplasm of digestive organs; K21.9 Gastro-esophageal reflux disease without esophagitis; D3A.092 Benign carcinoid tumor of the stomach
CPT/HCPCS: 43239; G0105; J2704

== ENCOUNTER 2024-09-02 13:55 | Day surgery (SDC) | payer MEDICARE, SELFPAY ==
--- NOTE | 2024-09-02 | PATH_ITS ---
[facility] Accession Number: [id number] No. of containers..06 Tissue . 01 Material submitted: . PART A: NEUROENDOCRINE - NEUROENDOCRICE TUMOR SITE 1 PART B: NEUROENDOCRINE - NEUROENDOCRINE TUMOR SITE 2 PART C: MUCOSAL - MUCOSAL PART D: body - LEFT OF LARGE POLYP PART E: OTHER - RIGHT SIDE PART F: OTHER - DISTAL POLYP . 01 Clinical history: . 2-28 PER NOTES RECEIVED, SITES FOR PART D, E, AND F WERE FILLED IN /RR . 01 Diagnosis: Part A: NEUROENDOCRINE TUMOR SITE Gastric mucosa with mild chronic and active inflammation, with neuroendocrine hyperplasia. No Helicobacter organisms identified on H/E stain. No intestinal metaplasia, dysplasia, or malignancy identified, including no residual neuroendocrine tumor. . Part B: NEUROENDOCRINE TUMOR SITE 2: Gastric mucosa with mild chronic inflammation and prominently dilated gastric glands. (See comment). No Helicobacter organisms identified on H/E stain. No intestinal metaplasia, dysplasia, or malignancy identified, including no residual neuroendocrine tumor. . . Specimen Comments: The presence of dilated gastric oxyntic glands is compatible with either fundic gland polyp formation or marked proton pump inhibitor effect. Clinical correlation is recommended. . Part C: MUCOSAL : Gastric mucosa with mild chronic inflammation and changes compatible with proton pump inhibitor effect. No Helicobacter organisms identified. No intestinal metaplasia, dysplasia, or malignancy identified, including no neuroendocrine tumor. . Part D: LEFT OF LARGE POLYP: Gastric mucosa with mild chronic inflammation and changes compatible with proton pump inhibitor effect. No Helicobacter organisms identified on H/E stain. No intestinal metaplasia, dysplasia, or malignancy identified, including no neuroendocrine tumor. . Part E: RIGHT SIDE: Gastric mucosa with mild chronic inflammation and changes compatible with proton pump inhibitor effect. No Helicobacter organisms identified. No intestinal metaplasia, dysplasia, or malignancy identified, including no neuroendocrine tumor. . Part F: DISTAL POLYP: Gastric hyperplastic polyp, with mild chronic inflammation. No Helicobacter organisms identified on H/E stain. No intestinal metaplasia, dysplasia, or malignancy identified, including no neuroendocrine tumor. [facility] 09/07/2024 1733 Local . 01 Electronically signed: . Nishant Bhakta MD, Pathologist NPI- [id number] . 01 Gross description: . A. Received in formalin with two patient identifiers and 1. Neuroendocrine tumor site 1, are four suárez soft tissue fragments, 0.3-0.4 cm in greatest dimension, submitted in A1. . B. Received in formalin with two patient identifiers and 2. Neuroendocrine tumor site 2, is a single suárez soft tissue fragment, 0.7 x 0.5 x 0.5 cm. Inked blue, bisected, and submitted entirely in B1. . C. Received in formalin with two patient identifiers and 3. Mucosal biopsies, are two suárez soft tissue fragments, 0.3-0.4 cm in greatest dimension, submitted in C1. . D. Received in formalin with two patient identifiers and 4, are two suárez soft tissue fragments, 0.3-0.4 cm in greatest dimension, submitted in D1. . E. Received in formalin with two patient identifiers and 5, is a single suárez soft tissue fragment, 0.6 cm in greatest dimension, submitted in E1. . F. Received in formalin with two patient identifiers and 6, are three suárez soft tissue fragments, all measuring 0.4 cm in greatest dimension, submitted in F1. ([id number]) /MRV 09/07/2024 1733 Local . 01 Microscopic: . Part A: NEUROENDOCRICE TUMOR SITE 1: A synaptophysin immunostain* highlights the presence of neuroendocrine hyperplasia in two of the biopsy fragments. No residual neuroendocrine tumor is seen. The control stains appropriately. . Part B: NEUROENDOCRINE TUMOR SITE 2: A synaptophysin immunostain* was performed and no residual neuroendocrine tumor was seen. The control stains appropriately. . Part C: MUCOSAL : An immunohistochemical stain* was performed to evaluate for Helicobacter organisms and is negative. The control stains appropriately. . Part E: RIGHT SIDE: An immunohistochemical stain was performed to evaluate for Helicobacter organisms and is negative. The control stains appropriately. * This test was developed and the performance characteristics were validated by [employer]. It has not been cleared or approved by the Food and Drug Administration. . 01 Pathologist provided ICD-10: K29.50, K31.7, Z87.19 . 01 CPT . 613688, 793906, 535141, 848544, 844310, 499614, N16631 Specimen Comment: A courtesy copy of this report has been sent to [phone] Performed at: [address] [facility] [address], [place], [place] [id number] MD Nishant Bhakta MD Phone: [phone]
[2024-09-02 14:33] VITALS: BP 158/75; PULSE 50; RESP 17; TEMP 36.4; O2SAT 99
[2024-09-02] MEDS: LACTATED RINGERS 1,000 ML 42 ML IV (14:38)
--- NOTE | 2024-09-02 15:01 | PM.OP.EGD ---
Operative Date/Time/Diagnoses Date of procedure: 09/02/24 Pre-op diagnosis: See indication and findings Procedure & Clinicians Study performed: EGD with polypectomy Same procedure as scheduled: Yes Indications: Gastric polyp showing evidence of well-differentiated neuroendocrine tumor need to perform polypectomy and treat the base. Surgeon: Jamil Main Procedure Notes Procedure in detail: After informed consent was obtained the patient was placed in left lateral decubitus position. The video upper scope was placed into the oropharynx and with the patient's help swelled into the esophagus. The esophagus stomach and duodenal were carefully examined. On withdrawal, retroflexed view the GE junction was performed. The scope was removed. The patient tolerated procedure well. Blood loss none Complications none Sedation mac Findings 1. Lesions were found in the upper stomach greater curvature seen on retroflexed view. The most brightly erythematous were more flat than polypoid. In when viewed from this aspect the next fold to the left had a polypoid 1 cm lesion on a fold. It was not erythematous. During the procedure an additional polyp approximately 8 mm in size was seen a bit more distally. All 3 polyps were treated with injection of epinephrine [id number] followed by spot injected 1-2 ml and followed by piecemeal snare polypectomy/EMR sometimes retrieving bits of tissue with biopsy forceps. Finally, 3 biopsies were taken down the sides of each of these folds that was operated on. The 1st was to the left of the large polyp (bottle 3.), the 2nd in between both polypectomy sites (4.) And the 5 on the right side of both polypectomy sites. The distal polyp pathology went into bottle 6. Total time 1:00 a.m. 2. Normal distal stomach and normal bulb sweep I will be in touch with patient regarding these biopsies
--- NOTE | 2024-09-02 15:03 | PM.HP.1 ---
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 Patient now returns to have polypectomy and further treatment of the site. FORMERLY [facility], [facility] Medical History CAD (coronary artery disease) Cardiac angina Enlarged prostate GERD (gastroesophageal reflux disease) Hypertension Wears glasses Surgical History H/O heart artery stent Social History household members: spouse Smoking Status: Never smoker alcohol intake: current Meds Home Medications and Allergies Home Medications Medication Instructions Recorded Confirmed Type aspirin 81 mg chewable tablet 81 mg PO DAILY 01/07/20 09/02/24 History (Aspirin Childrens) atorvastatin 40 mg tablet 40 mg PO DAILY 01/07/20 09/02/24 History desonide 0.05 % topical ointment 1 applic topical DAILY PRN Itching 01/07/20 08/12/24 History ferrous sulfate 325 mg (65 mg 325 mg PO BID 01/07/20 09/02/24 History iron) tablet glucosamine HCl 1,500 mg tablet 1,500 mg PO BID 01/07/20 09/02/24 History lisinopril 5 mg tablet 10 mg PO DAILY 01/07/20 09/02/24 History loratadine 10 mg tablet (Claritin) 10 mg PO DAILY 01/07/20 09/02/24 History multivitamin 1 tab PO DAILY 01/07/20 09/02/24 History nitroglycerin 0.4 mg sublingual 0.4 mg sublingual Q5-15M PRN Chest 01/07/20 08/12/24 History tablet Pain olopatadine 0.2 % eye drops 1 drp ophthalmic (eye) DAILY 01/07/20 08/12/24 History lansoprazole 30 mg capsule,delayed 30 mg PO DAILY 08/12/24 09/02/24 History release isosorbide mononitrate 60 mg 60 mg PO DAILY 09/02/24 09/02/24 History tablet,extended release 24 hr zinc acetate 50 mg (zinc) capsule 50 mg PO DAILY 09/02/24 09/02/24 History Allergies Allergy/AdvReac Type Severity Reaction Status Date / Time No Known Drug Allergies Allergy Verified 08/12/24 11:37 Exam Vital Signs (past 8 hours): - 09/02/24 14:33 Temperature 97.5 F L Pulse Rate 50 L Respiratory Rate 17 Blood Pressure 158/75 H Pulse Oximetry 99 Oxygen Delivery Method Room Air Oxygen Delivery Method Room Air Narrative Exam Narrative: Oropharynx free of lesions Chest clear to auscultation percussion Cardiac exam reveals no S3 or murmur Assessment & Plan Assessment & Plan narrative: EGD with polypectomy. Risks, benefits, alternatives have been explained Time-Based Coding :: [TOTAL MINUTES] spent with patient and on the chart (including review of chart, obtaining history, exam, reviewing outside data, placing orders, documenting exam and treatment plan, and counseling patient) on [DATE].
[2024-09-02] MEDS: EPINEPHrine 1 MG/ML SUBCUT (15:12)
[2024-09-02 15:54] VITALS: BP 139/65; PULSE 46; RESP 15; TEMP 36.1; O2SAT 97
[2024-09-02 15:59] VITALS: BP 142/69; PULSE 46; RESP 17; O2SAT 97
[2024-09-02 16:04] VITALS: BP 127/72; PULSE 45; RESP 14; O2SAT 98
[2024-09-02 16:09] VITALS: BP 134/67; PULSE 45; RESP 17; O2SAT 98
[2024-09-02 16:25] VITALS: BP 128/71; PULSE 45; RESP 16; O2SAT 98
== END 2024-09-02 16:50 | disposition home or self-care (01) ==
PROVIDERS: PCP Family Medicine; Referring Provider Internal Medicine Gastroenterology; Visit Provider Internal Medicine Gastroenterology
PROC: 0DJ08ZZ Inspection of Upper Intestinal Tract, Via Natural or Artificial Opening Endoscopic (ICD-10-PCS; CPT 43251; principal; 2024-09-02 15:00)
DX: K31.7 Polyp of stomach and duodenum (principal); K29.50 Unspecified chronic gastritis without bleeding; D3A.8 Other benign neuroendocrine tumors
CPT/HCPCS: 43251; J0171; J2704

== ENCOUNTER → 2024-11-24 09:52 | Outpatient (CLI) | payer MEDICARE, SELFPAY ==
[2024-11-24 10:25] LABS: Estimated Glomerular Filt Rate > 60 mL/min (>60)
--- NOTE | 2024-11-24 11:40 | DI.CT.S_ITS ---
PROCEDURE: CT ABDOMEN PELVIS W CON INDICATIONS: ABD PAIN/GASTRO REFLUX TECHNIQUE: After the administration of intravenous contrast, axial sections acquired from the lung bases to the pubic symphysis. Coronal and sagittal reformats were performed. For radiation dose reduction, the following was used: automated exposure control, adjustment of mA and/or kV according to patient size. COMPARISON: [facility], CT, ABDOMEN W&WO CONTRAST, 01/26/2016, 9:24. FINDINGS: Image quality: Diagnostic. Lower Chest: No significant findings. Calcification of the coronary vasculature. ABDOMEN: Liver: No solid mass. Gallbladder: Normal appearance Biliary ducts: No biliary dilation. Pancreas: No ductal dilation. Spleen: Size is within normal limits. Adrenal Glands: No adrenal nodules. Kidneys and Ureters: No hydronephrosis. No solid mass. No complex renal cystic lesion which requires follow up. Stomach and Bowel: Normal colonic caliber, without significant wall thickening. Appendix not seen. Peritoneum: No abnormal intraperitoneal fluid. No free air. Ventral Wall: No significant ventral hernia. Abdominal Nodes: No retroperitoneal or mesenteric adenopathy by size criteria. Vessels: Aorta and inferior vena cava are normal in size. PELVIS: Pelvic Organs: Unremarkable. Bladder: No bladder wall thickening, accounting for underdistention. Pelvic Nodes: No enlarged lymph nodes. Miscellaneous: No inguinal hernias are seen. Bones: No aggressive osseous abnormality. Grade 1 anterolisthesis of L4 on L5. Bilateral L4-L5 pars interarticularis defects. Multilevel degenerative disc and facet disease. IMPRESSION: 1. No acute process. 2. Grade 1 isthmic spondylolisthesis at L4-L5. 3. Coronary artery disease. Dictated by: Wendy Valiente M.D. on 11/24/2024 at 11:44 Approved by: Wendy Valiente M.D. on 11/24/2024 at 11:48
[2024-11-26 13:41] LABS: Chromogranin A, Serum 298.7 ng/mL (0.0-101.8)
== END ==
LOC: CT 09:53
PROVIDERS: Internal Medicine Gastroenterology; PCP Family Medicine; Referring Provider Family Medicine; Visit Provider Family Medicine
DX: K21.9 Gastro-esophageal reflux disease without esophagitis (principal); R10.9 Unspecified abdominal pain; D3A.8 Other benign neuroendocrine tumors; M43.16 Spondylolisthesis, lumbar region; I25.10 Atherosclerotic heart disease of native coronary artery without angina pectoris
CPT/HCPCS: 36415; 74177; 82565; 82570; 83497; 86316; Q9967

== ENCOUNTER 2024-11-25 10:22 | Day surgery (SDC) | payer MEDICARE, SELFPAY ==
--- NOTE | 2024-11-25 | PATH_ITS ---
[facility] Accession Number: [id number] No. of containers..01 Tissue . 01 Material submitted: . gastrointestinal site - GASTRIC BODY POLYP . 01 Diagnosis: GASTRIC BODY POLYP: Fundic gland polyp, with mild chronic inflammation. No Helicobacter organisms identified. No intestinal metaplasia, dysplasia, or malignancy identified. [facility] 12/02/2024 1322 Local . 01 Electronically signed: . Nishant Bhakta MD, Pathologist NPI- [id number] . 01 Gross description: . GASTRIC BODY POLYP: Received in formalin is 1 fragment(s) of suárez, soft tissue measuring 0.3 x 0.2 x 0.2 cm submitted entirely in 1 cassette(s) /[facility] 12/02/20241321 Local . 01 Microscopic: . GASTRIC BODY POLYP: An immunohistochemical stain was performed to evaluate for Helicobacter organisms and is negative. The control stains appropriately. * This test was developed and the performance characteristics were validated by [facility]. It has not been cleared or approved by the Food and Drug Administration. . 01 Pathologist provided ICD-10: K31.7 . 01 CPT . 892664, J21491 Specimen Comment: A courtesy copy of this report has been sent to [phone] Performed at: [address] [place], [place], [place] [id number] MD Nishant Bhakta MD Phone: [phone]
[2024-11-25] MEDS: LACTATED RINGERS 1,000 ML 42 ML IV (10:43)
[2024-11-25 10:45] VITALS: BP 156/74; PULSE 54; RESP 16; TEMP 36.9; O2SAT 98
--- NOTE | 2024-11-25 11:06 | PM.HP.IH.1 ---
History of Present Illness History of Present Illness Date Patient Seen: 11/25/24 Chief complaint: EGD w/poss bx Narrative: History of neuroendocrine tumor of the stomach removed endoscopically with last EGD 3 months ago showing negative biopsies in multiple mapping locations. Need for follow-up in a 3 month timeframe [facility] Medical History CAD (coronary artery disease) Cardiac angina Enlarged prostate GERD (gastroesophageal reflux disease) Hypertension Wears glasses Surgical History H/O heart artery stent Social History household members: spouse Smoking Status: Never smoker alcohol intake: current Meds Home Medications and Allergies Home Medications Medication Instructions Recorded Confirmed Type aspirin 81 mg chewable tablet 81 mg PO DAILY 01/07/20 11/25/24 History (Aspirin Childrens) atorvastatin 40 mg tablet 40 mg PO DAILY 01/07/20 11/25/24 History desonide 0.05 % topical ointment 1 applic topical DAILY PRN Itching 01/07/20 08/12/24 History ferrous sulfate 325 mg (65 mg 325 mg PO BID 01/07/20 11/25/24 History iron) tablet glucosamine HCl 1,500 mg tablet 1,500 mg PO BID 01/07/20 09/02/24 History lisinopril 5 mg tablet 10 mg PO DAILY 01/07/20 11/25/24 History loratadine 10 mg tablet (Claritin) 10 mg PO DAILY 01/07/20 09/02/24 History multivitamin 1 tab PO DAILY 01/07/20 09/02/24 History nitroglycerin 0.4 mg sublingual 0.4 mg sublingual Q5-15M PRN Chest 01/07/20 08/12/24 History tablet Pain olopatadine 0.2 % eye drops 1 drp ophthalmic (eye) DAILY 01/07/20 08/12/24 History lansoprazole 30 mg capsule,delayed 30 mg PO DAILY 08/12/24 11/25/24 History release isosorbide mononitrate 60 mg 60 mg PO DAILY 09/02/24 11/25/24 History tablet,extended release 24 hr zinc acetate 50 mg (zinc) capsule 50 mg PO DAILY 09/02/24 09/02/24 History Allergies Allergy/AdvReac Type Severity Reaction Status Date / Time No Known Drug Allergies Allergy Verified 11/25/24 10:41 Exam Vital Signs (past 8 hours): - 11/25/24 10:45 Temperature 98.5 F Pulse Rate 54 L Respiratory Rate 16 Blood Pressure 156/74 H Pulse Oximetry 98 Oxygen Delivery Method Room Air Oxygen Delivery Method Room Air Narrative Exam Narrative: Oropharynx free of lesions Chest clear to auscultation percussion Cardiac exam reveals no S3 or murmur Assessment & Plan Assessment & Plan narrative: Follow-up EGD to ensure complete removal of neuroendocrine gastric tumor. Risks, benefits, alternatives have been explained. Time-Based Coding :: [TOTAL MINUTES] spent with patient and on the chart (including review of chart, obtaining history, exam, reviewing outside data, placing orders, documenting exam and treatment plan, and counseling patient) on [DATE]. PROFEE Slate Ro[employer]er Document charge(s): No
--- NOTE | 2024-11-25 11:08 | PM.OP.EGD ---
Operative Date/Time/Diagnoses Date of procedure: 11/25/24 Time of procedure: 11:52 Pre-op diagnosis: See indication and findings Post-op diagnosis: same Procedure & Clinicians Same procedure as scheduled: Yes Indications: History of neuroendocrine tumor of the stomach rule out recurrence Surgeon: Jamil Main Procedure Notes Procedure in detail: After informed consent was obtained the patient was placed in left lateral decubitus position. The video upper scope was placed into the oropharynx and with the patient's help swallowed into the esophagus. The esophagus stomach and duodenal were carefully examined. On withdrawal, retroflexed view the GE junction was performed. The scope was removed. The patient tolerated procedure well. Blood loss none Complications none Sedation mac Findings 1. Normal esophagus 2. Normal stomach with the exception of a 3 mm polyp in the gastric body/anterior wall. Biopsies were taken. Expect this will be a fundic gland polyp 3. Erosive duodenitis Patient should continue on his lansoprazole. If anemia develops consider stopping the baby aspirin Patient should have follow-up EGD in 3-6 months
[2024-11-25 11:55] VITALS: BP 98/60; PULSE 51; RESP 16; TEMP 36.4; O2SAT 96
[2024-11-25 12:01] VITALS: BP 104/64; PULSE 50; RESP 16; TEMP 36.4; O2SAT 96
[2024-11-25 12:06] VITALS: BP 117/71; PULSE 50; RESP 15; TEMP 36.4; O2SAT 97
== END 2024-11-25 12:33 | disposition home or self-care (01) ==
PROVIDERS: PCP Family Medicine; Referring Provider Internal Medicine Gastroenterology; Visit Provider Internal Medicine Gastroenterology
PROC: 0DJ08ZZ Inspection of Upper Intestinal Tract, Via Natural or Artificial Opening Endoscopic (ICD-10-PCS; CPT 43239; principal; 2024-11-25 11:30)
DX: Z87.19 Personal history of other diseases of the digestive system (principal); K31.7 Polyp of stomach and duodenum; K29.80 Duodenitis without bleeding
CPT/HCPCS: 43239; J2704

== ENCOUNTER 2025-05-10 10:00 | Day surgery (SDC) | payer MEDICARE, SELFPAY ==
--- NOTE | 2025-05-10 | PATH_ITS ---
[facility] Accession Number: [id number] No. of containers..01 Tissue . 01 Material submitted: . gastrointestinal site - STOMACH . 01 Diagnosis: STOMACH: Gastric mucosa with mild chronic inflammation. No Helicobacter organisms identified. No intestinal metaplasia, dysplasia, or malignancy identified. [facility] 05/21/2025 [facility] Local . 01 Electronically signed: . Nishant Bhakta MD, Pathologist NPI- [id number] . 01 Gross description: . Received one formalin-filled container, labeled with the patient's name and stomach. The specimen consists of two fragments of suárez, soft tissue which range in size from 0.2 x 0.2 x 0.2 cm to 0.4 x 0.3 x 0.2 cm. All fragments are totally submitted in one cassette. ([id number]) /[facility] 05/21/2025 1308 Local . 01 Microscopic: . STOMACH: An immunohistochemical stain was performed to evaluate for Helicobacter organisms and is negative. The control stains appropriately. * This test was developed and the performance characteristics were validated by [facility]. It has not been cleared or approved by the Food and Drug Administration. . 01 Pathologist provided ICD-10: K29.50 . 01 CPT . 083756, [id number] Specimen Comment: A courtesy copy of this report has been sent to [phone] Performed at: 01 [address] [address], [place], [place] [id number] MD Nishant Bhakta MD Phone: [phone]
[2025-05-10 10:30] VITALS: BP 147/65; PULSE 48; RESP 16; TEMP 36.2; O2SAT 98
--- NOTE | 2025-05-10 10:49 | PM.HP.IH.1 ---
History of Present Illness History of Present Illness Date Patient Seen: 05/10/25 Chief complaint: EGD w/poss bx's FORMERLY [facility] Medical History CAD (coronary artery disease) Cardiac angina Enlarged prostate GERD (gastroesophageal reflux disease) Hypertension Wears glasses Surgical History H/O heart artery stent Social History household members: spouse Smoking Status: Former smoker alcohol intake: current Meds Home Medications and Allergies Home Medications ?Medication ?Instructions ?Recorded ?Confirmed ?Type aspirin 81 mg chewable tablet 81 mg PO DAILY 01/07/20 11/25/24 History (Aspirin Childrens) atorvastatin 40 mg tablet 40 mg PO DAILY 01/07/20 11/25/24 History desonide 0.05 % topical ointment 1 applic topical DAILY PRN Itching 01/07/20 08/12/24 History ferrous sulfate 325 mg (65 mg 325 mg PO BID 01/07/20 11/25/24 History iron) tablet glucosamine HCl 1,500 mg tablet 1,500 mg PO BID 01/07/20 09/02/24 History lisinopril 5 mg tablet 10 mg PO DAILY 01/07/20 11/25/24 History loratadine 10 mg tablet (Claritin) 10 mg PO DAILY 01/07/20 09/02/24 History multivitamin 1 tab PO DAILY 01/07/20 09/02/24 History nitroglycerin 0.4 mg sublingual 0.4 mg sublingual Q5-15M PRN Chest 01/07/20 08/12/24 History tablet Pain olopatadine 0.2 % eye drops 1 drp ophthalmic (eye) DAILY 01/07/20 08/12/24 History lansoprazole 30 mg capsule,delayed 30 mg PO DAILY 08/12/24 11/25/24 History release isosorbide mononitrate 60 mg 60 mg PO DAILY 09/02/24 11/25/24 History tablet,extended release 24 hr zinc acetate 50 mg (zinc) capsule 50 mg PO DAILY 09/02/24 09/02/24 History sodium,potassium,mag sulfates 17.5 See Rx Instructions PO .COMPLEX 03/01/25 Rx gram-3.13 gram-1.6 gram oral soln #354 mL (Suprep Bowel Prep Kit) Allergies Allergy/AdvReac Type Severity Reaction Status Date / Time No Known Drug Allergies Allergy Verified 11/25/24 10:41 Exam Vital Signs (past 8 hours): - 05/10/25 10:30 Temperature 97.2 F L Pulse Rate 48 L Respiratory Rate 16 Blood Pressure 147/65 H Pulse Oximetry 98 Oxygen Delivery Method Room Air Oxygen Delivery Method Room Air Narrative Exam Narrative: Oropharynx free of lesions Chest clear to auscultation percussion Cardiac exam reveals no S3 or murmur Assessment & Plan Assessment & Plan narrative: History of neuroendocrine tumor of the stomach on follow-up and after removal negative. Need for follow-up EGD with multiple biopsies. Risks, benefits, alternatives have been explained. Time-Based Coding :: [TOTAL MINUTES] spent with patient and on the chart (including review of chart, obtaining history, exam, reviewing outside data, placing orders, documenting exam and treatment plan, and counseling patient) on [DATE]. PROFEE Sy[employer]er Helper Document charge(s): No
--- NOTE | 2025-05-10 10:51 | PM.OP.EGD ---
Operative Date/Time/Diagnoses Date of procedure: 05/10/25 Time of procedure: 11:48 Pre-op diagnosis: See indication and findings Post-op diagnosis: same Procedure & Clinicians Study performed: EGD Same procedure(s) as scheduled: Yes Indications: History of neuroendocrine tumor of the stomach not present on last exam Surgeon: Jamil Main Anesthesia Type: Other Procedure Notes Procedure in detail: After informed consent was obtained the patient placed in left lateral decubitus position. Video upper scope was placed into the oropharynx and with the patient's help swallowed into the esophagus. The esophagus stomach and duodenal were carefully examined. On withdrawal, retroflexed view the GE junction was performed. The scope was removed. The patient tolerated the procedure well. Blood loss none Complications none Sedation mac Findings 1. Normal esophagus 2. Normal proximal stomach the distal stomach had streaky erythema. Biopsies taken. Careful evaluation of the entire stomach was made and there were no areas of swelling or abnormality. 3. Normal duodenal bulb and sweep Will await pathology but I think we have taken care of patient's small neuroendocrine tumor. I would suggest repeating upper endoscopy in 6-12 months Estimated Blood Loss: 0 Complications: none
[2025-05-10 11:48] VITALS: BP 93/50; PULSE 42; RESP 16; TEMP 36.1; O2SAT 95
[2025-05-10 11:53] VITALS: BP 91/53; PULSE 42; RESP 16; O2SAT 95
[2025-05-10 11:58] VITALS: BP 93/53; PULSE 44; RESP 16; O2SAT 93
[2025-05-10 12:03] VITALS: BP 95/50; PULSE 45; RESP 14; O2SAT 95
[2025-05-10 12:08] VITALS: BP 106/56; PULSE 44; RESP 16; O2SAT 98
== END 2025-05-10 12:55 | disposition home or self-care (01) ==
PROVIDERS: PCP Family Medicine; Referring Provider Internal Medicine Gastroenterology; Visit Provider Internal Medicine Gastroenterology
PROC: 0DJ08ZZ Inspection of Upper Intestinal Tract, Via Natural or Artificial Opening Endoscopic (ICD-10-PCS; CPT 43239; principal; 2025-05-10 11:00)
DX: K29.50 Unspecified chronic gastritis without bleeding (principal); Z87.19 Personal history of other diseases of the digestive system; K21.9 Gastro-esophageal reflux disease without esophagitis; I25.10 Atherosclerotic heart disease of native coronary artery without angina pectoris; I10 Essential (primary) hypertension; Z95.5 Presence of coronary angioplasty implant and graft; Z87.891 Personal history of nicotine dependence
CPT/HCPCS: 43239; J2704